=== PATIENT | male | born 1945 | race Caucasian/White ===

== ENCOUNTER 2020-06-14 06:04 | Observation (INO) | payer MEDICARE, BC ==
[~2020-06-14 06:04] MED LIST: Acetaminophen 325 MG Tab PO SCH; Lactated Ringers 1,000 ML IV SCH; Lidocaine 1%/Sod Bicarbonate in NS 8.4% 1 ML Syringe IDERM PRN; Morphine 8 MG, EPINEPHrine 0.3 MG, Cefuroxime 750 MG, Ketorolac 30 MG, Sodium Chloride ... PRN; Pregabalin 25 MG Cap PO SCH; Sodium Chloride 0.9% 10 ML Syringe FLUSH PRN; oxyCODONE ER 10 MG TAB.ER PO SCH
[2020-06-14] MEDS ORDERED: Bupivacaine 0.25% 10 ML SDV ONE (06:24)
[2020-06-14] MEDS ORDERED: Vancomycin 1 GM SDV ONE (06:24)
--- NOTE | 2020-06-14 06:53 | PCM.PREANE ---
Preanesthetic Assessment - Procedure Proposed Procedure: Left total knee arthroplasty - Anesthesia/Transfusion/Family Hx Anesthesia History: Prior Anesthesia Without Reaction Family History of Anesthesia Reaction: No Transfusion History: No Prior Transfusion(s) - Review of Systems General: No Symptoms Pulmonary: No Symptoms, Other (sleep apnea) Cardiovascular: Dyspnea on Exertion Gastrointestinal: No Symptoms Neurological: No Symptoms Other: Reports: Diabetes (check this am 111 at 0610) - Physical Assessment NPO Status Date: 06/13/20 NPO Status Time: 00:00 Vital Signs: Last Vital Signs Temp 36.4 C 06/14/20 06:10 Pulse 80 06/14/20 06:10 Resp 16 06/14/20 06:10 BP 159/69 H 06/14/20 06:10 Pulse Ox 95 06/14/20 06:10 Height: 1.7 m Weight: 101.151 kg ASA Class: 3 Mental Status: Alert & Oriented x3 Airway Class: Mallampati = 3 Dentition: Reports: Dentures Thyro-Mental Finger Breadths: 1 Mouth Opening Finger Breadths: 2 ROM/Head Extension: Limited/Partial Lungs: Clear to Auscultation, Normal Respiratory Effort Cardiovascular: Regular Rate, Regular Rhythm - Lab Values: Laboratory Last Values MRSA (PCR) Negative 06/02/20 12:11 - Allergies Allergies/Adverse Reactions: Allergies Allergy/AdvReac Type Severity Reaction Status Date / Time No Known Allergies Allergy Verified 06/11/20 15:03 - Blood Blood Available: No - Anesthesia Plan Pre-Op Medication Ordered: None - Acknowledgements Anesthesia Type Planned: Spinal Pt an Appropriate Candidate for the Planned Anesthesia: Yes Alternatives and Risks of Anesthesia Discussed w Pt/Guardian: Yes Pt/Guardian Understands and Agrees with Anesthesia Plan: Yes PreAnesthesia Questionnaire HEENT History: Reports: Impaired Vision, Other (See Below) Other HEENT History: diabetic retinopathy, wears glasses, has dentures Cardiovascular History: Reports: High Cholesterol, Hypertension, Other (See Below) Other Cardiovascular History: varicose veins, edema Respiratory History: Reports: Other (See Below) Other Respiratory History: acute bronchitis, upper respiratory infection, shortness of breath with exertion Gastrointestinal History: Reports: None Genitourinary History: Reports: BPH, Other (See Below) Other Genitourinary History: nocturia [employer]ILE [employer]ACH History: Reports: None Musculoskeletal History: Reports: Other (See Below) Other Musculoskeletal History: left knee pain, polymyalgia rheumatica, joint pain, popliteal space synovial cyst, left thumb tip amputation Neurological History: Reports: None Psychiatric History: Reports: Other (See Below) Other Psychiatric History: malaise, fatigue Endocrine/Metabolic History: Reports: Diabetes, Type II, Obesity/BMI 30+, Other (See Below) Other Endocrine/Metabolic History: thyroxotosis Hematologic History: Reports: Anemia Immunologic History: Reports: None Oncologic (Cancer) History: Reports: None Dermatologic History: Reports: Other (See Below) Other Dermatologic History: cellulits, abcess - Past Surgical History Head Surgeries/Procedures: Reports: None HEENT Surgical History: Reports: Cataract Surgery Respiratory Surgical History: Reports: None GI Surgical History: Reports: Colonoscopy Female Surgical History: Reports: None Male Surgical History: Reports: None Endocrine Surgical History: Reports: None Neurological Surgical History: Reports: None Musculoskeletal Surgical History: Reports: None Oncologic Surgical History: Reports: None Dermatological Surgical History: Reports: None - SUBSTANCE USE Tobacco Use Status *Q: Former Tobacco User Recreational Drug Use History: No - HOME MEDS Home Medications: Home Meds Cholecalciferol (Vitamin D3) [Vitamin D3] 5,000 unit PO DAILY 06/11/20 [History] Insulin Glarg,Human.Rec.Analog [Lantus] 12 units SQ BID 06/11/20 [History] Insulin Glulisine [Apidra Solostar] 10 units SQ BID 06/11/20 [History] Liraglutide [Victoza] 1.8 mg SQ DAILY 06/11/20 [History] Methotrexate 12.5 mg PO [place] 06/11/20 [History] Nitroglycerin [Nitrostat] 0.4 mg SL ASDIRECTED PRN 06/11/20 [History] Tamsulosin [Flomax] 0.4 mg PO DAILY 06/11/20 [History] amLODIPine [Norvasc] 5 mg PO DAILY 06/11/20 [History] atorvaSTATin Calcium [Lipitor] 20 mg PO DAILY 06/11/20 [History] predniSONE [Prednisone] 4 mg PO DAILY 06/11/20 [History] Aspirin [Aspirin EC] 325 mg PO BID #84 tab 06/14/20 [Rx] Cyclobenzaprine [Flexeril] 10 mg PO BID PRN #20 tab 06/14/20 [Rx] oxyCODONE 5 - 10 mg PO Q4H PRN #40 tab 06/14/20 [Rx] - CURRENT (IN HOUSE) MEDS Current Meds: Current Medications Acetaminophen (Tylenol) 975 mg PO ONETIME [facility] Stop: 06/14/20 13:00 Last Admin: 06/14/20 06:22 Dose: 975 mg Documented by: Morphine Sulfate 8 mg/Epinephrine HCl 0.3 mg/Cefuroxime Sodium 750 mg/Ketorolac Tromethamine 30 mg/Sodium Chloride 7.9 ml 0 mg .XX ASDIRECTED PRN PRN Reason: Pain Stop: 06/14/20 15:00 Lactated Ringer's (Ringers, Lactated) 1,000 mls @ 125 mls/hr IV ASDIRECTED [facility] Stop: 06/14/20 23:00 Lidocaine/Sodium Bicarbonate (Buffered Lidocaine 1% In Ns 8.4%) 0.25 ml IDERM ONETIME PRN PRN Reason: Prior to IV Start Stop: 06/14/20 18:00 Oxycodone HCl (Oxycontin) 10 mg PO ONETIME [facility] Stop: 06/14/20 13:00 Last Admin: 06/14/20 06:22 Dose: 10 mg Documented by: Pregabalin (Lyrica) 50 mg PO ONETIME [facility] Stop: 06/14/20 13:00 Last Admin: 06/14/20 06:21 Dose: 50 mg Documented by: Sodium Chloride (Saline Flush) 10 ml FLUSH ASDIRECTED PRN PRN Reason: Keep Vein Open Stop: 06/14/20 18:00 Discontinued Medications Bupivacaine HCl (Sensorcaine-Mpf 0.25%) Confirm Administered Dose 30 ml .ROUTE .STK-MED ONE Stop: 06/14/20 06:25 Tranexamic Acid (Cyklokapron) Confirm Administered Dose 1,000 mg .ROUTE .STK-MED ONE Stop: 06/14/20 06:25 Vancomycin HCl (Vancomycin) Confirm Administered Dose 1 gm .ROUTE .STK-MED ONE Stop: 06/14/20 06:25
[2020-06-14] MEDS ORDERED: Lidocaine 1% 4 ML ONE (06:58)
[2020-06-14] MEDS ORDERED: fentaNYL 100 MCG/2 ML SDV ONE (06:58)
[2020-06-14] MEDS ORDERED: Propofol 200 MG/20 ML SDV ONE ×3 (06:58→08:20)
[2020-06-14] MEDS ORDERED: ceFAZolin 1 GM Vial ONE (06:59)
--- NOTE | 2020-06-14 08:52 | PCM.POSTAN ---
POST ANESTHESIA ASSESSMENT - MENTAL STATUS Mental Status: Somnolent - VITAL SIGNS Vital Signs: Last Vital Signs Temp 36.4 C 06/14/20 06:10 Pulse 80 06/14/20 06:10 Resp 16 06/14/20 06:10 BP 159/69 H 06/14/20 06:10 Pulse Ox 95 06/14/20 06:10 - RESPIRATORY Respiratory Status: Respiratory Rate WNL, Airway Patent, O2 Saturation Stable, Supplemental Oxygen - CARDIOVASCULAR CV Status: Pulse Rate WNL, Blood Pressure Stable - GASTROINTESTINAL GI Status: No Symptoms - PAIN Pain Score: 0 - POST OP HYDRATION Hydration Status: Adequate & Stable - OBSERVATIONS Free Text/Narrative:: no anesthesia complications noted
[2020-06-14] MEDS ORDERED: EPINEPHrine 1 MG/ML SDV ONE (08:58)
[2020-06-14] MEDS ORDERED: Ropivacaine 0.5% 5 MG/ML 30 ML SDV ONE (08:59)
--- NOTE | 2020-06-14 09:21 | PCM.SN.2 ---
- Free Text/Narrative Note: Left selective femoral nerve block at the adductor canal for post-procedure pain control under US guidance requested by Dr. Ambrosio. Time Out: 901 Start: 901 End: 908 Chart reviewed. Consent signed. Questions answered. Appropriate monitors applied. Time out performed. Left mid-shaft femur identified with ultrasound, scanning medially of femur, the femoral artery in the adductor canal visualized, and the femoral nerve located laterally to the artery. The skin was prepped lateral to the ultrasound probe with chlorahexadine times two. The 21ga 4� insulated block needle was inserted under direct ultrasound guidance into the adductor canal. 20mL of 0.5% ropivacaine with 1:200,000 epinephrine was injected circumferentially around the nerve with intermittent negative aspiration noted. Patient tolerated the procedure well. Sterile technique noted along with sterile gloves, mask, and sterile probe cover. See picture on progress note and vital signs on nurse�s notes. Block completed in PACU. Salvador Sepulveda CRNA
[2020-06-14] MEDS ORDERED: oxyCODONE 5 MG Tab PO PRN ×2 (10:18→16:57)
--- NOTE | 2020-06-14 10:23 | CR ---
Left knee: AP and lateral views of the left knee were obtained. Comparison: No previous left knee exam is available. Findings: Left knee prosthesis is seen. Components are aligned. Soft tissue air and effusion is seen within the joint compatible with the surgical procedure. Mild vascular calcification is seen. No acute fracture is seen. Impression: 1. Unremarkable postop radiographic exam of recently placed left knee prosthesis. Diagnostic code #2
[2020-06-14] MEDS ORDERED: Lactated Ringers 1,000 ML ONE (10:41)
[2020-06-14] MEDS ORDERED: Dexamethasone 4 MG/ML 5 ML MDV ONE (10:41)
--- NOTE | 2020-06-14 12:57 | PCM48HPAN ---
Post Anesthesia Note - EVALUATION WITHIN 48HRS OF ANESTHETIC Vital Signs in Normal Range: Yes Patient Participated in Evaluation: Yes Respiratory Function Stable: Yes Airway Patent: Yes Cardiovascular Function Stable: Yes Hydration Status Stable: Yes Pain Control Satisfactory: Yes Nausea and Vomiting Control Satisfactory: Yes Mental Status Recovered: Yes Vital Signs: Last Vital Signs Temp 36.7 C 06/14/20 09:50 Pulse 89 06/14/20 12:12 Resp 16 06/14/20 12:12 BP 130/77 06/14/20 12:12 Pulse Ox 92 L 06/14/20 12:12 - COMMENTS/OBSERVATIONS Free Text/Narrative:: no anesthesia complications noted
[2020-06-14] MEDS ORDERED: Sennosides 8.6 MG Tab PO PRN (16:57)
[2020-06-14] MEDS ORDERED: Ondansetron 4 MG/2 ML SDV IVPUSH PRN (16:57)
[2020-06-14] MEDS ORDERED: Bisacodyl 5 MG Tab PO PRN (16:57)
[2020-06-14] MEDS ORDERED: Cyclobenzaprine 10 MG Tab PO PRN (16:57)
[2020-06-14] MEDS ORDERED: HYDROmorphone 0.5 MG/0.5 ML Syringe IVPUSH PRN (16:57)
[2020-06-14] MEDS ORDERED: Naloxone 0.4 MG/ML SDV IVPUSH PRN (16:57)
[2020-06-14] MEDS ORDERED: Nitroglycerin 0.4 MG Tab.SL SL PRN (17:10)
[2020-06-14] MEDS: ceFAZolin 2 GM in Premix Bag 1 BAG IV SCH (18:05)
[2020-06-14] MEDS: LANTUS SUBCUT SCH (20:41)
[2020-06-14] MEDS ORDERED: Simvastatin 20 MG Tab PO SCH (21:00)
[2020-06-15] MEDS: ceFAZolin 2 GM in Premix Bag 1 BAG IV SCH ×2 (00:49→09:19)
[2020-06-15] MEDS ORDERED: APIDRA SUBCUT SCH (07:00)
--- NOTE | 2020-06-15 07:44 | PCM48HPAN ---
Post Anesthesia Note - EVALUATION WITHIN 48HRS OF ANESTHETIC Vital Signs in Normal Range: Yes Patient Participated in Evaluation: Yes Respiratory Function Stable: Yes Airway Patent: Yes Cardiovascular Function Stable: Yes Hydration Status Stable: Yes Pain Control Satisfactory: Yes Nausea and Vomiting Control Satisfactory: Yes Mental Status Recovered: Yes Vital Signs: Last Vital Signs Temp 35.8 C L 06/15/20 07:25 Pulse 88 06/15/20 07:25 Resp 18 06/15/20 07:25 BP 166/61 H 06/15/20 07:25 Pulse Ox 93 L 06/15/20 07:41 - COMMENTS/OBSERVATIONS Free Text/Narrative:: no anesthesia complications noted
[2020-06-15] MEDS: LANTUS SUBCUT SCH (08:27)
--- NOTE | 2020-06-15 08:33 | PCM.SURGPN ---
- General Info Date of Service: 06/15/20 POD#: 1 Functional Status: Reports: Pain Controlled, Tolerating Diet, Ambulating, Urinating, Incentive Spirometry, Other (Pt states he is doing "much better". He reports increased strength with LLE and able to ambulate well. Pt reports pain /.) - Review of Systems Pulmonary: Reports: Other (Use of O2 overnight. ) - Patient Data Vitals - Most Recent: Last Vital Signs Temp 96.4 F L 06/15/20 07:25 Pulse 88 06/15/20 07:25 Resp 18 06/15/20 07:25 BP 166/61 H 06/15/20 08:26 Pulse Ox 93 L 06/15/20 07:41 Weight - Most Recent: 230 lb I&O - Last 24 Hours: Intake & Output 06/14/20 06/15/20 06/15/20 22:59 06:59 14:59 Intake Total 50 Balance 50 Lab Results Last 24 Hrs: Laboratory Results - last 24 hr 06/15/20 06/15/20 Range/Units 04:31 04:31 WBC 14.95 H (4.23-9.07) K/mm3 RBC 3.35 L (4.63-6.08) M/mm3 Hgb 10.6 L D (13.7-17.5) gm/dl Hct 32.8 L (40.1-51.0) % MCV 97.9 H (79.0-92.2) fl MCH 31.6 (25.7-32.2) pg MCHC 32.3 (32.2-35.5) g/dl RDW Std Deviation 47.5 H (35.1-43.9) fL Plt Count 158 L (163-337) K/mm3 MPV 11.8 (9.4-12.3) fl Sodium 132 L (136-145) mEq/L Potassium 4.4 (3.5-5.1) mEq/L Chloride 100 (98-107) mEq/L Carbon Dioxide 26 (21-32) mEq/L Anion Gap 10.4 (5-15) BUN 42 H (7-18) mg/dL Creatinine 1.9 H (0.7-1.3) mg/dL Est Cr Clr Drug Dosing 32.37 mL/min Estimated GFR (MDRD) 35 (>60) mL/min BUN/Creatinine Ratio 22.1 H (14-18) Glucose 229 H (83-115) mg/dL Calcium 8.2 L (8.5-10.1) mg/dL Total Bilirubin 0.4 (0.2-1.0) mg/dL AST 17 (15-37) U/L ALT 20 (16-63) U/L Alkaline Phosphatase 57 (46-116) U/L Total Protein 5.8 L (6.4-8.2) g/dl Albumin 2.8 L (3.4-5.0) g/dl Globulin 3.0 gm/dL Albumin/Globulin Ratio 0.9 L (1-2) Med Orders - Current: Current Medications Amlodipine Besylate (Norvasc) 5 mg PO DAILY [facility] Last Admin: 06/15/20 08:26 Dose: 5 mg Documented by: Aspirin (Ecotrin) 325 mg PO BID [facility] Bisacodyl (Dulcolax) 5 mg PO DAILY PRN PRN Reason: Constipation Cholecalciferol (Vitamin D3) 5,000 unit PO DAILY [facility] Last Admin: 06/15/20 08:26 Dose: 5,000 unit Documented by: Cyclobenzaprine HCl (Flexeril) 10 mg PO BID PRN PRN Reason: Spasms Hydromorphone HCl (Dilaudid) 0.2 mg IVPUSH Q2H PRN PRN Reason: Pain (moderate 4-6) Cefazolin Sodium/Dextrose 2 gm (/ Premix) 50 mls @ 100 mls/hr IV Q8H [facility] Stop: 06/15/20 09:29 Last Admin: 06/15/20 00:49 Dose: 100 mls/hr Documented by: Methotrexate (Methotrexate) 12.5 mg PO CROWLEY [facility] Naloxone HCl (Narcan) 0.1 mg IVPUSH Q5M PRN PRN Reason: Oversedation Nitroglycerin (Nitrostat) 0.4 mg SL ASDIRECTED PRN PRN Reason: Chest Pain Ondansetron HCl (Zofran) 4 mg IVPUSH Q6H PRN PRN Reason: Nausea/Vomiting Oxycodone HCl (Oxycodone) 5 - 10 mg PO Q4H PRN PRN Reason: Pain Last Admin: 06/14/20 18:06 Dose: 10 mg Documented by: Lantus Solostar *Pt (Own Med*) 0 each SUBCUT BID [facility] Last Admin: 06/15/20 08:27 Dose: 12 each Documented by: Apidra Solostar *Pt (Own Med*) 0 each SUBCUT BIDMEALS [facility] Last Admin: 06/15/20 07:30 Dose: 10 each Documented by: Liraglutide*Pt Own (Med*) 0 each SUBCUT DAILY [facility] Last Admin: 06/15/20 08:27 Dose: 1.8 each Documented by: Prednisone (Prednisone) 4 mg PO DAILY [facility] Last Admin: 06/15/20 08:26 Dose: 4 mg Documented by: Senna (Senna) 8.6 mg PO BID PRN PRN Reason: Constipation Simvastatin (Zocor) 20 mg PO BEDTIME [facility] Last Admin: 06/14/20 20:41 Dose: 20 mg Documented by: Tamsulosin HCl (Flomax) 0.4 mg PO DAILY [facility] Last Admin: 06/15/20 08:26 Dose: 0.4 mg Documented by: Discontinued Medications Acetaminophen (Tylenol) 975 mg PO ONETIME [facility] Stop: 06/14/20 13:00 Last Admin: 06/14/20 06:22 Dose: 975 mg Documented by: Bupivacaine HCl (Sensorcaine-Mpf 0.25%) Confirm Administered Dose 30 ml .ROUTE .STK-MED ONE Stop: 06/14/20 06:25 Last Admin: 06/14/20 08:10 Dose: 30 ml Documented by: Cefazolin Sodium (Ancef) Confirm Administered Dose 2 gm .ROUTE .STK-MED ONE Stop: 06/14/20 07:00 Morphine Sulfate 8 mg/Epinephrine HCl 0.3 mg/Cefuroxime Sodium 750 mg/Ketorolac Tromethamine 30 mg/Sodium Chloride 7.9 ml 0 mg .XX ASDIRECTED PRN PRN Reason: Pain Stop: 06/14/20 15:00 Last Admin: 06/14/20 08:12 Dose: 788.3 mg Documented by: Dexamethasone (Dexamethasone) Confirm Administered Dose 20 mg .ROUTE .STK-MED ONE Stop: 06/14/20 10:42 Epinephrine HCl (Adrenalin) Confirm Administered Dose 1 mg .ROUTE .STK-MED ONE Stop: 06/14/20 08:59 Fentanyl (Sublimaze) Confirm Administered Dose 100 mcg .ROUTE .STK-MED ONE Stop: 06/14/20 06:59 Lactated Ringer's (Ringers, Lactated) 1,000 mls @ 125 mls/hr IV ASDIRECTED [facility] Stop: 06/14/20 23:00 Last Admin: 06/14/20 06:40 Dose: 125 mls/hr Documented by: Lidocaine HCl (Xylocaine-Mpf 1%) Confirm Administered Dose 4 mls @ as directed .ROUTE .STK-MED ONE Stop: 06/14/20 06:59 Lactated Ringer's (Ringers, Lactated) Confirm Administered Dose 1,000 mls @ as directed .ROUTE .STK-MED ONE Stop: 06/14/20 10:42 Lidocaine/Sodium Bicarbonate (Buffered Lidocaine 1% In Ns 8.4%) 0.25 ml IDERM ONETIME PRN PRN Reason: Prior to IV Start Stop: 06/14/20 18:00 Last Admin: 06/14/20 06:40 Dose: 0.25 ml Documented by: Oxycodone HCl (Oxycontin) 10 mg PO ONETIME [facility] Stop: 06/14/20 13:00 Last Admin: 06/14/20 06:22 Dose: 10 mg Documented by: Oxycodone HCl (Oxycodone) 10 mg PO Q4H PRN PRN Reason: Pain Last Admin: 06/14/20 10:24 Dose: 10 mg Documented by: Pregabalin (Lyrica) 50 mg PO ONETIME [facility] Stop: 06/14/20 13:00 Last Admin: 06/14/20 06:21 Dose: 50 mg Documented by: Propofol (Diprivan 20 Ml) Confirm Administered Dose 200 mg .ROUTE .STK-MED ONE Stop: 06/14/20 06:59 Propofol (Diprivan 20 Ml) Confirm Administered Dose 200 mg .ROUTE .STK-MED ONE Stop: 06/14/20 07:43 Propofol (Diprivan 20 Ml) Confirm Administered Dose 200 mg .ROUTE .STK-MED ONE Stop: 06/14/20 08:21 Ropivacaine (Naropin 0.5%) Confirm Administered Dose 30 ml .ROUTE .STK-MED ONE Stop: 06/14/20 09:00 Sodium Chloride (Saline Flush) 10 ml FLUSH ASDIRECTED PRN PRN Reason: Keep Vein Open Stop: 06/14/20 18:00 Tranexamic Acid (Cyklokapron) Confirm Administered Dose 1,000 mg .ROUTE .STK-MED ONE Stop: 06/14/20 06:25 Last Admin: 06/14/20 08:23 Dose: 1,000 mg Documented by: Vancomycin HCl (Vancomycin) Confirm Administered Dose 1 gm .ROUTE .STK-MED ONE Stop: 06/14/20 06:25 Last Admin: 06/14/20 08:23 Dose: 1 gm Documented by: - Exam Wound/Incisions: Dressing Dry and Intact General: Alert, Cooperative, No Acute Distress Lungs: Normal Respiratory Effort, Other (No O2 per NC at time of eval today.) Extremities: Other (NVS intact for LLE. Zarina's negative. ) Sepsis Event Note - Evaluation Sepsis Screening Result: No Definite Risk - Focused Exam Vital Signs: Vital Signs Temp Pulse Resp BP Pulse Ox Pulse Ox 06/15/20 08:26 166/61 H 06/15/20 07:41 93 L 93 L 06/15/20 07:25 96.4 F L 88 18 166/61 H 93 L 06/15/20 06:23 94 L 06/15/20 05:37 78 94 L 06/15/20 05:34 78 89 L 89 L 06/15/20 05:33 78 91 L 06/15/20 04:49 78 96 06/15/20 04:47 78 91 L 06/15/20 04:45 97.5 F 78 16 134/55 L 93 L 93 L 06/15/20 01:53 94 96 06/15/20 00:55 97.9 F 83 14 143/73 H 96 96 - Problem List Review Problem List Initiated/Reviewed/Updated: Yes - My Orders Last 24 Hours: Active Orders 24 hr Category Date Time Status Patient Status [ADT] Routine ADT 06/14/20 16:58 Active Ambulate [RC] PER UNIT ROUTINE Care 06/14/20 16:57 Active Antiembolic Devices [RC] PER UNIT ROUTINE Care 06/14/20 16:57 Active Antiembolic Devices [RC] PER UNIT ROUTINE Care 06/14/20 16:59 Active Blood Glucose Check, Bedside [RC] ASDIRECTED Care 06/14/20 16:57 Active Communication Order [RC] ASDIRECTED Care 06/14/20 17:09 Active Communication Order [RC] ASDIRECTED Care 06/15/20 08:30 Ordered May Shower [RC] ASDIRECTED Care 06/14/20 16:57 Active Notify Provider Consults [RC] ASDIRECTED Care 06/15/20 08:29 Ordered Notify Provider [RC] ASDIRECTED Care 06/14/20 08:51 Active Oxygen Therapy [RC] PRN Care 06/14/20 16:58 Active RT Incentive Spirometry [RC] Q1HWA Care 06/14/20 16:55 Active Up to Chair [RC] ASDIRECTED Care 06/14/20 16:57 Active Vital Signs [RC] Q4HR Care 06/14/20 16:58 Active Consult to Physician [CONS] Routine Cons 06/15/20 08:28 Ordered OT Evaluation and Treatment [CONS] Routine Cons 06/14/20 16:57 Active PT Evaluation and Treatment [CONS] Routine Cons 06/14/20 16:56 Active [employer] Diet [DIET] Diet 06/14/20 Dinner Active Aspirin [Ecotrin] Med 06/16/20 08:14 Active 325 mg PO BID Cholecalciferol (Vitamin D3) [Vitamin D3] Med 06/15/20 09:00 Active 5,000 unit PO DAILY Cyclobenzaprine [Flexeril] Med 06/14/20 16:57 Active 10 mg PO BID PRN HYDROmorphone [Dilaudid] Med 06/14/20 16:57 Active 0.2 mg IVPUSH Q2H PRN Methotrexate Med 06/20/20 17:10 Active 12.5 mg PO [place] Naloxone [Narcan] Med 06/14/20 16:57 Active 0.1 mg IVPUSH Q5M PRN Nitroglycerin [Nitrostat] Med 06/14/20 17:10 Active 0.4 mg SL ASDIRECTED PRN Ondansetron [Zofran] Med 06/14/20 16:57 Active 4 mg IVPUSH Q6H PRN Patient's Own Medication [Ptom] Med 06/14/20 21:00 Active 0 each SUBCUT BID Patient's Own Medication [Ptom] Med 06/15/20 07:00 Active 0 each SUBCUT BIDMEALS Patient's Own Medication [Ptom] Med 06/15/20 09:00 Active 0 each SUBCUT DAILY Sennosides [Senna] Med 06/14/20 16:57 Active 8.6 mg PO BID PRN Simvastatin [Zocor] Med 06/14/20 21:00 Active 20 mg PO BEDTIME Tamsulosin [Flomax] Med 06/15/20 09:00 Active 0.4 mg PO DAILY amLODIPine [Norvasc] Med 06/15/20 09:00 Active 5 mg PO DAILY bisacodyL [Dulcolax] Med 06/14/20 16:57 Active 5 mg PO DAILY PRN ceFAZolin [Ancef] 2 gm Med 06/14/20 17:00 Active Premix Bag 1 bag IV Q8H oxyCODONE Med 06/14/20 16:57 Active 5 - 10 mg PO Q4H PRN predniSONE Med 06/15/20 09:00 Active 4 mg PO DAILY Antiembolic Hose [OM.PC] Routine Oth 06/14/20 16:57 Ordered Ice Therapy [OM.PC] Per Unit Routine Oth 06/14/20 17:00 Ordered Sequential Compression Device [OM.PC] Per Unit Routine Oth 06/14/20 16:56 Ordered Resuscitation Status Routine Resus Stat 06/14/20 16:57 Ordered Medication Orders Amlodipine Besylate (Norvasc) 5 mg PO DAILY [facility] Last Admin: 06/15/20 08:26 Dose: 5 mg Documented by: MATEUS Aspirin (Ecotrin) 325 mg PO BID [facility] Bisacodyl (Dulcolax) 5 mg PO DAILY PRN PRN Reason: Constipation Cholecalciferol (Vitamin D3) 5,000 unit PO DAILY [facility] Last Admin: 06/15/20 08:26 Dose: 5,000 unit Documented by: MATEUS Cyclobenzaprine HCl (Flexeril) 10 mg PO BID PRN PRN Reason: Spasms Hydromorphone HCl (Dilaudid) 0.2 mg IVPUSH Q2H PRN PRN Reason: Pain (moderate 4-6) Cefazolin Sodium/Dextrose 2 gm (/ Premix) 50 mls @ 100 mls/hr IV Q8H [facility] Stop: 06/15/20 09:29 Last Admin: 06/15/20 00:49 Dose: 100 mls/hr Documented by: Infusion: 06/14/20 18:35 Dose: 100 mls/hr Documented by: Admin: 06/14/20 18:05 Dose: 100 mls/hr Documented by: MATEUS Methotrexate (Methotrexate) 12.5 mg PO CROWLEY [facility] Naloxone HCl (Narcan) 0.1 mg IVPUSH Q5M PRN PRN Reason: Oversedation Nitroglycerin (Nitrostat) 0.4 mg SL ASDIRECTED PRN PRN Reason: Chest Pain Ondansetron HCl (Zofran) 4 mg IVPUSH Q6H PRN PRN Reason: Nausea/Vomiting Oxycodone HCl (Oxycodone) 5 - 10 mg PO Q4H PRN PRN Reason: Pain Last Admin: 06/14/20 18:06 Dose: 10 mg Documented by: MATEUS Lanhi Alvarez *Pt (Own Med*) 0 each SUBCUT BID [facility] Last Admin: 06/15/20 08:27 Dose: 12 each Documented by: Admin: 06/14/20 20:41 Dose: 12 each Documented by: DOUG Apidrsergio Alvarez *Pt (Own Med*) 0 each SUBCUT BIDMEALS [facility] Last Admin: 06/15/20 07:30 Dose: 10 each Documented by: MATEUS Liraglutide*Pt Own (Med*) 0 each SUBCUT DAILY [facility] Last Admin: 06/15/20 08:27 Dose: 1.8 each Documented by: MATEUS Prednisone (Prednisone) 4 mg PO DAILY [facility] Last Admin: 06/15/20 08:26 Dose: 4 mg Documented by: MATEUS Senna (Senna) 8.6 mg PO BID PRN PRN Reason: Constipation Simvastatin (Zocor) 20 mg PO BEDTIME [facility] Last Admin: 06/14/20 20:41 Dose: 20 mg Documented by: DOUG Tamsulosin HCl (Flomax) 0.4 mg PO DAILY [facility] Last Admin: 06/15/20 08:26 Dose: 0.4 mg Documented by: MATEUS - Assessment Assessment (Free Text/Narrative):: POD#1 - left TKA - Plan Plan (Free Text/Narrative):: 1. Hospitalist consult ordered for eval of home O2 and renal function. Creat 1.9 with GFR 35. 2. Oxycodone and Flexeril for pain management. 3. 325mg ASA PO BID, frequent mobility, TEDs. 4. Discharge to home today if cleared by Hospitalist service and therapies. 5. Hgb 10.6. The pt's case was discussed with Dr. Ambrosio.
--- NOTE | 2020-06-15 08:37 | PCM.CONS ---
H&P History of Present Illness - General Date of Service: 06/15/20 Admit Problem/Dx: Admission Diagnosis/Problem Admission Diagnosis/Problem Osteoarthritis of knee Source of Information: Patient, Old Records, Provider, RN, RN Notes Reviewed History Limitations: Reports: No Limitations - History of Present Illness Initial Comments - Free Text/Narative: Ilir Robertson is a 74 yo male patient of Dr. Ambrosio who is post-operative day 1 of left TKA. Hospital medicine was consulted for post-operative medical care of the following listed medical conditions. At this time he is resting comfortably in bed. Pain is controlled. He denies any chest pain, shortness of breath, palpitations, nausea, or vomiting. He carries a history of: diabetic retinopathy, HLD, HTN, varicose venins, edema, BPH, Nocturia, polymyalgia rheumatica, Type II DM, Obesity, history of thyrotoxicosis, anemia. He is a former smoker. He is a full code. His primary care provider is Dr. Goff. - Related Data Allergies/Adverse Reactions: Allergies Allergy/AdvReac Type Severity Reaction Status Date / Time No Known Allergies Allergy Verified 06/11/20 15:03 Home Medications: Home Meds Cholecalciferol (Vitamin D3) [Vitamin D3] 5,000 unit PO DAILY 06/11/20 [History] Insulin Glarg,Human.Rec.Analog [Lantus] 12 units SQ BID 06/11/20 [History] Insulin Glulisine [Apidra Solostar] 10 units SQ BID 06/11/20 [History] Liraglutide [Victoza] 1.8 mg SQ DAILY 06/11/20 [History] Methotrexate 12.5 mg PO CROWLEY 06/11/20 [History] Nitroglycerin [Nitrostat] 0.4 mg SL ASDIRECTED PRN 06/11/20 [History] Tamsulosin [Flomax] 0.4 mg PO DAILY 06/11/20 [History] amLODIPine [Norvasc] 5 mg PO DAILY 06/11/20 [History] atorvaSTATin Calcium [Lipitor] 20 mg PO DAILY 06/11/20 [History] predniSONE [Prednisone] 4 mg PO DAILY 06/11/20 [History] Aspirin [Aspirin EC] 325 mg PO BID #84 tab 06/14/20 [Rx] Cyclobenzaprine [Flexeril] 10 mg PO BID PRN #20 tab 06/14/20 [Rx] oxyCODONE 5 - 10 mg PO Q4H PRN #40 tab 06/14/20 [Rx] Past Medical History HEENT History: Reports: Impaired Vision, Other (See Below) Other HEENT History: diabetic retinopathy, wears glasses, has dentures Cardiovascular History: Reports: High Cholesterol, Hypertension, Other (See Below) Other Cardiovascular History: varicose veins, edema Respiratory History: Reports: Other (See Below) Other Respiratory History: acute bronchitis, upper respiratory infection, shortness of breath with exertion Gastrointestinal History: Reports: None Genitourinary History: Reports: BPH, Other (See Below) Other Genitourinary History: nocturia 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 Musculoskeletal History: Reports: Other (See Below) Other Musculoskeletal History: left knee pain, polymyalgia rheumatica, joint pain, popliteal space synovial cyst, left thumb tip amputation Neurological History: Reports: None Psychiatric History: Reports: Other (See Below) Other Psychiatric History: malaise, fatigue Endocrine/Metabolic History: Reports: Diabetes, Type II, Obesity/BMI 30+, Other (See Below) Other Endocrine/Metabolic History: thyroxotosis Hematologic History: Reports: Anemia Immunologic History: Reports: None Oncologic (Cancer) History: Reports: None Dermatologic History: Reports: Other (See Below) Other Dermatologic History: cellulits, abcess - Past Surgical History Head Surgeries/Procedures: Reports: None HEENT Surgical History: Reports: Cataract Surgery Respiratory Surgical History: Reports: None GI Surgical History: Reports: Colonoscopy Male Surgical History: Reports: None Endocrine Surgical History: Reports: None Neurological Surgical History: Reports: None Musculoskeletal Surgical History: Reports: None Oncologic Surgical History: Reports: None Dermatological Surgical History: Reports: None Social & Family History - Tobacco Use Tobacco Use Status *Q: Former Tobacco User Used Tobacco, but Quit: Yes Month/Year Tobacco Last Used: 2002 - Caffeine Use Caffeine Use: Reports: Coffee, Tea - Recreational Drug Use Recreational Drug Use: No Drug Use in Last 12 Months: No H&P Review of Systems - Review of Systems: Review Of Systems: See Below General: Reports: No Symptoms. Denies: Fever, Chills HEENT: Reports: No Symptoms. Denies: Headaches, Sore Throat Pulmonary: Reports: No Symptoms. Denies: Shortness of Breath, Wheezing, Pleuritic Chest Pain, Cough, Sputum Cardiovascular: Reports: No Symptoms. Denies: Chest Pain, Palpitations, Dyspnea on Exertion Gastrointestinal: Reports: No Symptoms. Denies: Abdominal Pain, Constipation, Diarrhea, Nausea, Vomiting Genitourinary: Reports: No Symptoms. Denies: Pain Musculoskeletal: Reports: Leg Pain Skin: Reports: No Symptoms. Denies: Cyanosis Psychiatric: Reports: No Symptoms. Denies: Confusion Neurological: Reports: Difficulty Walking, Gait Disturbance. Denies: Confusion, Pre-Existing Deficit Hematologic/Lymphatic: Reports: No Symptoms Immunologic: Reports: No Symptoms Exam - Exam Exam: See Below - Vital Signs Vital Signs: Last Vital Signs Temp 96.4 F L 06/15/20 07:25 Pulse 88 06/15/20 07:25 Resp 18 06/15/20 07:25 BP 166/61 H 06/15/20 08:26 Pulse Ox 93 L 06/15/20 07:41 Weight: 230 lb - Exam Quality Assessment: DVT Prophylaxis General: Alert, Oriented, Cooperative. No: Mild Distress HEENT: Conjunctiva Clear, EACs Clear, Mucosa Moist & [place] Neck: Supple, Trachea Midline Lungs: Clear to Auscultation, Normal Respiratory Effort GI/Abdominal Exam: Normal Bowel Sounds, Soft, Non-Tender, No Distention (Male) Exam: Deferred Rectal (Males) Exam: Deferred Back Exam: Normal Inspection, Full Range of Motion Extremities: Normal Capillary Refill, Leg Pain, Limited Range of Motion, Other (Bandage in place on left leg. Cooling pack in place. Bandage is intact and dry.) Peripheral Pulses: 2+: Radial (L), Radial (R), Dorsalis Pedis (L), Dorsalis Pedis (R) Skin: Warm, Dry, Intact Neurological: Cranial Nerves Intact (Grossly ) Neuro Extensive - Mental Status: Alert, Oriented x3, Normal Mood/Affect - Patient Data Lab Results Last 24 hrs: Laboratory Results - last 24 hr 06/15/20 06/15/20 Range/Units 04:31 04:31 WBC 14.95 H (4.23-9.07) K/mm3 RBC 3.35 L (4.63-6.08) M/mm3 Hgb 10.6 L D (13.7-17.5) gm/dl Hct 32.8 L (40.1-51.0) % MCV 97.9 H (79.0-92.2) fl MCH 31.6 (25.7-32.2) pg MCHC 32.3 (32.2-35.5) g/dl RDW Std Deviation 47.5 H (35.1-43.9) fL Plt Count 158 L (163-337) K/mm3 MPV 11.8 (9.4-12.3) fl Sodium 132 L (136-145) mEq/L Potassium 4.4 (3.5-5.1) mEq/L Chloride 100 (98-107) mEq/L Carbon Dioxide 26 (21-32) mEq/L Anion Gap 10.4 (5-15) BUN 42 H (7-18) mg/dL Creatinine 1.9 H (0.7-1.3) mg/dL Est Cr Clr Drug Dosing 32.37 mL/min Estimated GFR (MDRD) 35 (>60) mL/min BUN/Creatinine Ratio 22.1 H (14-18) Glucose 229 H (83-115) mg/dL Calcium 8.2 L (8.5-10.1) mg/dL Total Bilirubin 0.4 (0.2-1.0) mg/dL AST 17 (15-37) U/L ALT 20 (16-63) U/L Alkaline Phosphatase 57 (46-116) U/L Total Protein 5.8 L (6.4-8.2) g/dl Albumin 2.8 L (3.4-5.0) g/dl Globulin 3.0 gm/dL Albumin/Globulin Ratio 0.9 L (1-2) Result Diagrams: 06/15/20 04:31 06/15/20 04:31 Sepsis Event Note - Evaluation Sepsis Screening Result: No Definite Risk - Focused Exam Vital Signs: Vital Signs Temp Pulse Resp BP Pulse Ox Pulse Ox 06/15/20 08:26 166/61 H 06/15/20 07:41 93 L 93 L 06/15/20 07:25 96.4 F L 88 18 166/61 H 93 L 06/15/20 06:23 94 L 06/15/20 05:37 78 94 L 06/15/20 05:34 78 89 L 89 L 06/15/20 05:33 78 91 L 06/15/20 04:49 78 96 06/15/20 04:47 78 91 L 06/15/20 04:45 97.5 F 78 16 134/55 L 93 L 93 L 06/15/20 01:53 94 96 06/15/20 00:55 97.9 F 83 14 143/73 H 96 96 Consult PN Assessment/Plan POD#: 1 Procedures: Procedures C-REACTIVE PROTEIN (06/08/20) COMPLETE CBC W/AUTO DIFF WBC (06/08/20) COMPREHEN METABOLIC PANEL (06/08/20) MRI JOINT UPR EXTREM W/O DYE (12/19/16) ROUTINE VENIPUNCTURE (06/08/20) (1) S/P total knee arthroplasty SNOMED Code(s): 1060152600613, 227856392, 4218993825541 Code(s): Z96.659 - PRESENCE OF UNSPECIFIED ARTIFICIAL KNEE JOINT Priority: High Current Visit: Yes Qualifiers: Laterality: left Qualified Code(s): Z96.652 - Presence of left artificial knee joint (2) Osteoarthritis SNOMED Code(s): 439473610 Code(s): M19.90 - UNSPECIFIED OSTEOARTHRITIS, UNSPECIFIED SITE Priority: High Current Visit: Yes Qualifiers: Osteoarthritis location: knee Osteoarthritis type: primary Laterality: left Qualified Code(s): M17.12 - Unilateral primary osteoarthritis, left knee (3) Diabetic retinopathy SNOMED Code(s): 5409287, 72068471 Code(s): E11.319 - TYPE 2 DIABETES W UNSP DIABETIC RTNOP W/O MACULAR EDEMA Priority: High Current Visit: Yes Qualifiers: Diabetes mellitus type: type 2 Diabetic retinopathy severity: with unspecified retinopathy severity Diabetes mellitus macular edema: macular edema presence unspecified Laterality: unspecified laterality Qualified Code(s): E11.319 - Type 2 diabetes mellitus with unspecified diabetic retinopathy without macular edema (4) HLD (hyperlipidemia) SNOMED Code(s): 67660099 Code(s): E78.5 - HYPERLIPIDEMIA, UNSPECIFIED Priority: Low Current Visit: No Qualifiers: Hyperlipidemia type: unspecified Qualified Code(s): E78.5 - Hyperlipidemia, unspecified (5) HTN (hypertension) SNOMED Code(s): 58236344 Code(s): I10 - ESSENTIAL (PRIMARY) HYPERTENSION Priority: Low Current Visit: No Qualifiers: Hypertension type: unspecified Qualified Code(s): I10 - Essential (primary) hypertension (6) Varicose vein of leg SNOMED Code(s): 15315166 Code(s): I83.90 - ASYMPTOMATIC VARICOSE VEINS OF UNSPECIFIED LOWER EXTREMITY Priority: Low Current Visit: No Qualifiers: Varicose vein complication: unspecified Laterality: unspecified laterality Qualified Code(s): I83.90 - Asymptomatic varicose veins of unspecified lower extremity (7) BPH (benign prostatic hyperplasia) SNOMED Code(s): 111088950 Code(s): N40.0 - BENIGN PROSTATIC HYPERPLASIA WITHOUT LOWER URINRY TRACT SYMP Priority: Low Current Visit: No Qualifiers: Lower urinary tract symptom presence: unspecified whether lower urinary tract symptoms present Qualified Code(s): N40.0 - Benign prostatic hyperplasia without lower urinary tract symptoms (8) Nocturia SNOMED Code(s): 664769798 Code(s): R35.1 - NOCTURIA Priority: Low Current Visit: No (9) Polymyalgia rheumatica SNOMED Code(s): 86647331 Code(s): M35.3 - POLYMYALGIA RHEUMATICA Priority: Medium Current Visit: No (10) Type II diabetes mellitus SNOMED Code(s): 13315032 Code(s): E11.9 - TYPE 2 DIABETES MELLITUS WITHOUT COMPLICATIONS Priority: Medium Current Visit: Yes Qualifiers: Diabetes mellitus mcc insulin use: with knit tubing dyer use Diabetes mellitus complication status: with other specified complication Qualified Code(s): E11.69 - Type 2 diabetes mellitus with other specified complication; Z79.4 - power chisel operator (current) use of insulin (11) Obesity SNOMED Code(s): 112865551, 693788219 Code(s): E66.9 - OBESITY, UNSPECIFIED Priority: Low Current Visit: No Qualifiers: Obesity type: unspecified obesity type Obesity classification: adult class 2 (BMI 35 - 39.9) Serious obesity comorbidity presence: unspecified whether serious comorbidity present Body mass index: BMI 36.0-36.9 Qualified Code(s): E66.9 - Obesity, unspecified; Z68.36 - Body mass index [BMI] 36.0-36.9, adult (12) History of thyrotoxicosis SNOMED Code(s): 062738509 Code(s): Z86.39 - PERSONAL HISTORY OF ENDO, NUTRITIONAL AND METABOLIC DISEASE Priority: Low Current Visit: No (13) Anemia SNOMED Code(s): 957254340 Code(s): D64.9 - ANEMIA, UNSPECIFIED Priority: Low Current Visit: No Qualifiers: Anemia type: unspecified type Qualified Code(s): D64.9 - Anemia, unspecified (14) Former smoker SNOMED Code(s): 9448246 Code(s): Z87.891 - PERSONAL HISTORY OF NICOTINE DEPENDENCE Priority: Low Current Visit: No (15) Adverse drug effect SNOMED Code(s): 79472870 Code(s): T50.905A - ADVERSE EFFECT OF UNSP DRUG/MEDS/BIOL SUBST, INIT Priority: High Current Visit: Yes Qualifiers: Encounter type: initial encounter Qualified Code(s): T50.905A - Adverse effect of unspecified drugs, medicaments and biological substances, initial encounter (16) Hyponatremia SNOMED Code(s): 35401622 Code(s): E87.1 - HYPO-OSMOLALITY AND HYPONATREMIA Priority: Medium Current Visit: Yes Problem List Initiated/Reviewed/Updated: Yes Plan: I/P: Acute: S/P left total knee arthroplasty - post-operative day 1 -DVT prophylaxis and pain management per primary care team -PT/OT -IS/RT -Monitor oxygen saturation -Titrate oxygen as needed -Home medications reviewed -Vital signs stable -Monitor labs -Pre-operative Hgb was 12.2; Now 10.6 -Pre-operative GFR was 40; Now 35 -Pre-operative creatinine was 1.7; now 1.9 -Pre-operative WBC was 8.04; Now 14.95 -Pre-operative A1C was 7.2 -Pre-operative 12-lead EKG showed sinus rhythm at 78 BPM with Abnormal T- waves lateral leads (consider ischemia) Osteoarthritis of left knee -Pain management per primary care team Adverse drug effect -Nursing reports significant confusion with oxycodone -Resolved this AM Hyponatremia -Sodium today noted to be 132 -Pre-operative sodium was 142 -Home medications reviewed -Asymptomatic -Follow-up with PCP for re-check of labs within 3-5 days. Chronic: diabetic retinopathy HLD HTN varicose venins edema BPH Nocturia polymyalgia rheumatica Type II DM Obesity history of thyrotoxicosis anemia Plan: CM for discharge planning GI prophylaxis Home medications as indicated Other orders as listed above Routine AM labs He is a full code. His PCP is Dr. Goff From a hospitalist standpoint Ilir is doing quite well. He was weaned off of oxygen today. He had an episode of significant confusion last night which was attributed to his oxycodone and has resolved today with discontinuation of the medication. He was up working with PT/OT. His BP has been somewhat elevated but this is likely 2/2 pain. He reports continued leg pain, more severe with ambulation, but states it is tolerable. His sodium today is 132 but he is asymptomatic. Would like him to follow-up with his PCP within 5-7 days for repeat BMP to re-check this. Otherwise his labs have been stable. WBC is el evated but this is likely stress reaction from surgery. Recommend PCP re-check CBC as well. He has been ambulating and has urinated. No nursing concerns. He has been a diabetic for many wears and is well versed on management of this with an A1C of 7.2 pre-operatively. He is cleared for discharge pending primary team and PT/OT agreement. Thank you for allowing us to participate in the care of this patient!! Requesting Provider: Dr. Ambrosio Date Consult Requested: 06/15/20 Patient History Reviewed: Yes Admission H&P Reviewed: Yes Notified Requestor: Yes
--- NOTE | 2020-06-15 08:40 | PCM.DCSUM1 ---
Discharge Summary - Hospital Course Brief History: Ilir is a 74 yo male who underwent left TKA with Dr. Ambrosio on 06-14-2020. The procedure was completed under spinal anesthesia with sedation and a post-operative adductor canal block was provided. The pt tolerated the procedure well, however, was slow to progress with PT. Decision was made to admit pt to Hospital under Observation status for continued monitoring of DM, renal function, and O2 as well as IV antibiotic and for PT and OT. Medical management was provided by the Hospitalist service. The pt's Hospital course was uneventful. The pt's Hgb on POD#1 was 10.6. On POD#1, 325mg ASA BID was initiated for VTE prophylaxis. SCDs and TEDs were also ordered. A Mepilex dressing was placed at the incision site at the time of surgery and remained clean and dry. On POD#1, the pt met inpt PT and OT goals and was deemed appropriate to discharge to home with his . - Discharge Data Discharge Date: 06/15/20 Discharge Disposition: Home, Self-Care 01 Condition: Good - Referral to Home Health Primary Care Physician: Gregorio Goff MD - Patient Summary/Data Consults: Consultations 06/14/20 16:56 PT Evaluation and Treatment [CONS] Routine 06/14/20 16:57 OT Evaluation and Treatment [CONS] Routine 06/15/20 08:28 Consult to Physician [CONS] Routine - Patient Instructions Diet: Usual Diet as Tolerated, Diabetic Diet Activity: Apply Ice, As Tolerated, Elevate Extremity, Full Weight Bearing Driving: Do Not Drive Showering/Bathing: May Shower Wound/Incision Care: Keep Operative Site/Wound Site Clean and Dry, Do NOT Change Dressing Notify Provider of: Fever, Increased Pain, Swelling and Redness, Drainage, Nausea and/or Vomiting Other/Special Instructions: Please get up and moving around EVERY HOUR while awake. This helps to prevent blood clots. Please use your walker and have help with mobility as needed. Take a short walk in your home EVERY HOUR while awake. On 06-15-2020, please take 325mg aspirin TWICE daily. The aspirin is being used for blood clot prevention and not for pain management so please do not miss a dose of the medication. Please HOLD use of 81 mg aspirin daily while using the 325 mg aspirin twice daily. When the course of 325 mg aspirin is completed, please resume use of 81 mg aspirin daily. If your primary care provider allows, you could use a medication like Pepcid or Tagamet and a medication like Prilosec or Nexium to protect your stomach while you are using the aspirin. TALK TO YOUR PRIMARY CARE PROVIDER about this. At home, please complete the exercises that you learned during the Hospital stay. Schedule for physical therapy. Use the pain medication as needed. The medication may cause drowsiness and constipation. Contact your primary care provider for instructions if you are constipated. You may use a stool softener like docusate sodium or Colace 100mg twice daily and/or a laxative like Miralax daily for constipation. Increase your water and fiber intake while you are using the pain medication. Discontinue use of the pain medication as soon as able. Please do not use other medications that may cause drowsiness (other pain medications, anxiety pills, cold medications, sleeping pills, etc) while using the prescription pain medication. Do not use alcohol while using the pain medication. You may use acetaminophen or Tylenol for pain management, however, please ensure you are not using over 4000 mg or 4 grams of acetaminophen per day from all sources. At this time, please do not use ibuprofen (Motrin, Advil) or naproxen (Aleve) for pain management as you are using the aspirin. When the aspirin course is completed in 4 to 6 weeks, you could use ibuprofen or naproxen for pain management (IF THIS IS ALLOWED by your primary care provider). Tomorrow, you may remove the MARKOS bandage on the surgical limb and place the MONI hose. If you can tolerate wearing the MONI hose, wear the MONI hose during the da y and you may remove these at night. Elevate the limb to decrease swelling. Elevating the limb above the level of your heart will be most effective. Place ice to the knee often. Place a towel between your skin and the blue pad. Use the incentive spirometer often. Take deep breaths throughout the day. Please keep the dressing in place until follow-up. Notify the Clinic if the dressing becomes saturated. If the dressing is sealed and without a hole, the dressing is water resistant and you could have a shower. Please closely monitor your blood sugars and notify your primary care provider with abnormal values. Elevated blood sugars increases the risk of infection. SCHEDULE a follow-up appointment with your primary doctor this week to ensure you are doing well regarding your kidney tests and blood sugars following surgery. Call the Clinic with questions or concerns - [phone] and leave a message for the nurse. - Discharge Plan *PRESCRIPTION DRUG MONITORING PROGRAM REVIEWED*: No *COPY OF PRESCRIPTION DRUG MONITORING REPORT IN PATIENT TESS: No Prescriptions/Med Rec: Aspirin [Aspirin EC] 325 mg PO BID #84 tab Cyclobenzaprine [Flexeril] 10 mg PO BID PRN #20 tab PRN Reason: Spasms oxyCODONE 5 - 10 mg PO Q4H PRN #40 tab PRN Reason: Pain Home Medications: Home Meds Cholecalciferol (Vitamin D3) [Vitamin D3] 5,000 unit PO DAILY 06/11/20 [History] Insulin Glarg,Human.Rec.Analog [Lantus] 12 units SQ BID 06/11/20 [History] Insulin Glulisine [Apidra Solostar] 10 units SQ BID 06/11/20 [History] Liraglutide [Victoza] 1.8 mg SQ DAILY 06/11/20 [History] Methotrexate 12.5 mg PO CROWLEY 06/11/20 [History] Nitroglycerin [Nitrostat] 0.4 mg SL ASDIRECTED PRN 06/11/20 [History] Tamsulosin [Flomax] 0.4 mg PO DAILY 06/11/20 [History] amLODIPine [Norvasc] 5 mg PO DAILY 06/11/20 [History] atorvaSTATin Calcium [Lipitor] 20 mg PO DAILY 06/11/20 [History] predniSONE [Prednisone] 4 mg PO DAILY 06/11/20 [History] Aspirin [Aspirin EC] 325 mg PO BID #84 tab 06/14/20 [Rx] Cyclobenzaprine [Flexeril] 10 mg PO BID PRN #20 tab 06/14/20 [Rx] oxyCODONE 5 - 10 mg PO Q4H PRN #40 tab 06/14/20 [Rx] Patient Handouts: Cyclobenzaprine tablets, Oxycodone tablets or capsules, Total Knee Replacement, Care After, Aspirin, ASA oral tablets, Total Knee Replacement Referrals: Lakisha Mcknight PA-C [Physician Assistant Inventory Manager] - 06/22/20 9:30 am (Follow up appointment scheduled for Monday, june 22, 2020 at 9:30 am with Lakisha Mcknight PA-C at [facility].) - Discharge Summary/Plan Comment DC Time >30 min.: No - Patient Data Vitals - Most Recent: Last Vital Signs Temp 96.4 F L 06/15/20 07:25 Pulse 88 06/15/20 07:25 Resp 18 06/15/20 07:25 BP 166/61 H 06/15/20 08:26 Pulse Ox 93 L 06/15/20 07:41 Weight - Most Recent: 230 lb I&O - Last 24 hours: Intake & Output 06/14/20 06/15/20 06/15/20 22:59 06:59 14:59 Intake Total 50 Balance 50 Lab Results - Last 24 hrs: Laboratory Results - last 24 hr 06/15/20 06/15/20 Range/Units 04:31 04:31 WBC 14.95 H (4.23-9.07) K/mm3 RBC 3.35 L (4.63-6.08) M/mm3 Hgb 10.6 L D (13.7-17.5) gm/dl Hct 32.8 L (40.1-51.0) % MCV 97.9 H (79.0-92.2) fl MCH 31.6 (25.7-32.2) pg MCHC 32.3 (32.2-35.5) g/dl RDW Std Deviation 47.5 H (35.1-43.9) fL Plt Count 158 L (163-337) K/mm3 MPV 11.8 (9.4-12.3) fl Sodium 132 L (136-145) mEq/L Potassium 4.4 (3.5-5.1) mEq/L Chloride 100 (98-107) mEq/L Carbon Dioxide 26 (21-32) mEq/L Anion Gap 10.4 (5-15) BUN 42 H (7-18) mg/dL Creatinine 1.9 H (0.7-1.3) mg/dL Est Cr Clr Drug Dosing 32.37 mL/min Estimated GFR (MDRD) 35 (>60) mL/min BUN/Creatinine Ratio 22.1 H (14-18) Glucose 229 H (83-115) mg/dL Calcium 8.2 L (8.5-10.1) mg/dL Total Bilirubin 0.4 (0.2-1.0) mg/dL AST 17 (15-37) U/L ALT 20 (16-63) U/L Alkaline Phosphatase 57 (46-116) U/L Total Protein 5.8 L (6.4-8.2) g/dl Albumin 2.8 L (3.4-5.0) g/dl Globulin 3.0 gm/dL Albumin/Globulin Ratio 0.9 L (1-2) Med Orders - Current: Current Medications Amlodipine Besylate (Norvasc) 5 mg PO DAILY [facility] Last Admin: 06/15/20 08:26 Dose: 5 mg Documented by: Aspirin (Ecotrin) 325 mg PO BID [facility] Bisacodyl (Dulcolax) 5 mg PO DAILY PRN PRN Reason: Constipation Cholecalciferol (Vitamin D3) 5,000 unit PO DAILY [facility] Last Admin: 06/15/20 08:26 Dose: 5,000 unit Documented by: Cyclobenzaprine HCl (Flexeril) 10 mg PO BID PRN PRN Reason: Spasms Hydromorphone HCl (Dilaudid) 0.2 mg IVPUSH Q2H PRN PRN Reason: Pain (moderate 4-6) Cefazolin Sodium/Dextrose 2 gm (/ Premix) 50 mls @ 100 mls/hr IV Q8H [facility] Stop: 06/15/20 09:29 Last Admin: 06/15/20 00:49 Dose: 100 mls/hr Documented by: Methotrexate (Methotrexate) 12.5 mg PO CROWLEY [facility] Naloxone HCl (Narcan) 0.1 mg IVPUSH Q5M PRN PRN Reason: Oversedation Nitroglycerin (Nitrostat) 0.4 mg SL ASDIRECTED PRN PRN Reason: Chest Pain Ondansetron HCl (Zofran) 4 mg IVPUSH Q6H PRN PRN Reason: Nausea/Vomiting Oxycodone HCl (Oxycodone) 5 - 10 mg PO Q4H PRN PRN Reason: Pain Last Admin: 06/14/20 18:06 Dose: 10 mg Documented by: Jenaro Alvarez *Pt (Own Med*) 0 each SUBCUT BID [facility] Last Admin: 06/15/20 08:27 Dose: 12 each Documented by: Scottie Alvarez *Pt (Own Med*) 0 each SUBCUT BIDMEALS [facility] Last Admin: 06/15/20 07:30 Dose: 10 each Documented by: Liraglutide*Pt Own (Med*) 0 each SUBCUT DAILY [facility] Last Admin: 06/15/20 08:27 Dose: 1.8 each Documented by: Prednisone (Prednisone) 4 mg PO DAILY [facility] Last Admin: 06/15/20 08:26 Dose: 4 mg Documented by: Senna (Senna) 8.6 mg PO BID PRN PRN Reason: Constipation Simvastatin (Zocor) 20 mg PO BEDTIME [facility] Last Admin: 06/14/20 20:41 Dose: 20 mg Documented by: Tamsulosin HCl (Flomax) 0.4 mg PO DAILY [facility] Last Admin: 06/15/20 08:26 Dose: 0.4 mg Documented by: Discontinued Medications Acetaminophen (Tylenol) 975 mg PO ONETIME [facility] Stop: 06/14/20 13:00 Last Admin: 06/14/20 06:22 Dose: 975 mg Documented by: Bupivacaine HCl (Sensorcaine-Mpf 0.25%) Confirm Administered Dose 30 ml .ROUTE .STK-MED ONE Stop: 06/14/20 06:25 Last Admin: 06/14/20 08:10 Dose: 30 ml Documented by: Cefazolin Sodium (Ancef) Confirm Administered Dose 2 gm .ROUTE .STK-MED ONE Stop: 06/14/20 07:00 Morphine Sulfate 8 mg/Epinephrine HCl 0.3 mg/Cefuroxime Sodium 750 mg/Ketorolac Tromethamine 30 mg/Sodium Chloride 7.9 ml 0 mg .XX ASDIRECTED PRN PRN Reason: Pain Stop: 06/14/20 15:00 Last Admin: 06/14/20 08:12 Dose: 788.3 mg Documented by: Dexamethasone (Dexamethasone) Confirm Administered Dose 20 mg .ROUTE .STK-MED ONE Stop: 06/14/20 10:42 Epinephrine HCl (Adrenalin) Confirm Administered Dose 1 mg .ROUTE .STK-MED ONE Stop: 06/14/20 08:59 Fentanyl (Sublimaze) Confirm Administered Dose 100 mcg .ROUTE .STK-MED ONE Stop: 06/14/20 06:59 Lactated Ringer's (Ringers, Lactated) 1,000 mls @ 125 mls/hr IV ASDIRECTED ELADIA Stop: 06/14/20 23:00 Last Admin: 06/14/20 06:40 Dose: 125 mls/hr Documented by: Lidocaine HCl (Xylocaine-Mpf 1%) Confirm Administered Dose 4 mls @ as directed .ROUTE .STK-MED ONE Stop: 06/14/20 06:59 Lactated Ringer's (Ringers, Lactated) Confirm Administered Dose 1,000 mls @ as directed .ROUTE .STK-MED ONE Stop: 06/14/20 10:42 Lidocaine/Sodium Bicarbonate (Buffered Lidocaine 1% In Ns 8.4%) 0.25 ml IDERM ONETIME PRN PRN Reason: Prior to IV Start Stop: 06/14/20 18:00 Last Admin: 06/14/20 06:40 Dose: 0.25 ml Documented by: Oxycodone HCl (Oxycontin) 10 mg PO ONETIME [facility] Stop: 06/14/20 13:00 Last Admin: 06/14/20 06:22 Dose: 10 mg Documented by: Oxycodone HCl (Oxycodone) 10 mg PO Q4H PRN PRN Reason: Pain Last Admin: 06/14/20 10:24 Dose: 10 mg Documented by: Pregabalin (Lyrica) 50 mg PO ONETIME [facility] Stop: 06/14/20 13:00 Last Admin: 06/14/20 06:21 Dose: 50 mg Documented by: Propofol (Diprivan 20 Ml) Confirm Administered Dose 200 mg .ROUTE .STK-MED ONE Stop: 06/14/20 06:59 Propofol (Diprivan 20 Ml) Confirm Administered Dose 200 mg .ROUTE .STK-MED ONE Stop: 06/14/20 07:43 Propofol (Diprivan 20 Ml) Confirm Administered Dose 200 mg .ROUTE .STK-MED ONE Stop: 06/14/20 08:21 Ropivacaine (Naropin 0.5%) Confirm Administered Dose 30 ml .ROUTE .STK-MED ONE Stop: 06/14/20 09:00 Sodium Chloride (Saline Flush) 10 ml FLUSH ASDIRECTED PRN PRN Reason: Keep Vein Open Stop: 06/14/20 18:00 Tranexamic Acid (Cyklokapron) Confirm Administered Dose 1,000 mg .ROUTE .STK-MED ONE Stop: 06/14/20 06:25 Last Admin: 06/14/20 08:23 Dose: 1,000 mg Documented by: Vancomycin HCl (Vancomycin) Confirm Administered Dose 1 gm .ROUTE .[facility] ONE Stop: 06/14/20 06:25 Last Admin: 06/14/20 08:23 Dose: 1 gm Documented by:
[2020-06-15] MEDS ORDERED: amLODIPine 5 MG Tab PO SCH (09:00)
[2020-06-15] MEDS ORDERED: predniSONE 1 MG Tab PO SCH (09:00)
[2020-06-15] MEDS ORDERED: LIRAGLUTIDE SUBCUT SCH (09:00)
[2020-06-15] MEDS ORDERED: Cholecalciferol (Vitamin D3) 5,000 UNIT Cap PO SCH (09:00)
[2020-06-15] MEDS ORDERED: Tamsulosin 0.4 MG Cap.ER PO SCH (09:00)
[2020-06-16] MEDS ORDERED: Aspirin 325 MG Tab.EC PO SCH (08:14)
[2020-06-20] MEDS ORDERED: Methotrexate 2.5 MG Tab PO SCH (17:10)
--- NOTE | 2020-06-24 10:40 | PCM.OPNOTE ---
- General Post-Op/Procedure Note Date of Surgery/Procedure: 06/14/20 Operative Procedure(s): left total knee arthroplasty Pre Op Diagnosis: left knee osteoarthrosis Post-Op Diagnosis: Same Anesthesia Technique: Local, MAC, Spinal Primary Surgeon: Blaise Ambrosio Anesthesia Provider: Salvador Sepulveda Photographers' Model: Lakisha Mcknight Photographers' Model: Kacie Reynoso in mLs: 5 Complications: None Condition: Good Free Text/Narrative:: 5 femur 6 tibia 11mm PS 35x10
--- NOTE | 2020-06-24 11:08 | OR ---
DATE OF OPERATION: 06/14/2020 SURGEON: Blaise Ambrosio MD OPERATION PERFORMED: Left total knee arthroplasty. PREOPERATIVE DIAGNOSIS: Left knee osteoarthrosis. POSTOPERATIVE DIAGNOSIS: Left knee osteoarthrosis. ANESTHESIA: Local MAC with spinal. ANESTHESIA PROVIDER: Salvador Sepulveda CRNA ASSISTANTS: Lakisha Mcknight PA-C and Kacie Reynoso LPN. ESTIMATED BLOOD LOSS: 5 mL. COMPLICATIONS: None. CONDITION: Stable. IMPLANTS: 1. [place] size 5 cemented PS femur. 2. Sparkle size 6 cemented [place] tibial baseplate. 3. Sparkle size 6, 11 mm PS X3 polyethylene. 4. Sparkle size 35 x 10 mm cemented asymmetric patella. DESCRIPTION OF PROCEDURE: The patient was identified in the preop holding area. Proper site was marked and identified by the surgeon. The patient was taken back to the operating theater. After adequate anesthesia, the patient's left lower extremity had a nonsterile tourniquet applied and it was sterilely prepped and draped in the usual sterile fashion. OR time-out was performed. The patient received 2 g IV Ancef. At this time, the left lower extremity was exsanguinated. Tourniquet was insufflated to 300 mmHg. Standard medial parapatellar incision was made. Medial parapatellar arthrotomy was created. Deep fibers of the MCL were raised and anterior fat pad was resected. At this time, attention was turned to the patella. Patella measured 24, it was resected to a 14 for 35 x 10 mm patella. Drill holes were then drilled and found to be in adequate position. The drill was then drilled in the distal femur and the intramedullary distal femoral cutting guide was then placed. 10 mm was resected off the distal femur and was found to be an adequate resection. Sizing guide was placed. It was found to be a size 5 cemented PS femur that was shown on the implant record at the beginning of this dictation. The drill holes were drilled for the epicondylar axis using [place] line and epicondyles as reference. At this time, the 4-in-1 cutting block was placed. An anterior posterior and anterior and posterior chamfer cuts were then completed. Box cut was completed at this time. Attention was turned to the tibia. The posterior medial lateral retractors were placed. The extramedullary tibial guide was placed. It was placed in the old footprint of the ACL. It was aligned with the center of the ankle and 0 degrees of slope, 9 mm was then resected off the unaffected side. There was found to be an acceptable reduction. At this time, posterior osteophytes were removed along with medial and lateral meniscus. A trial implant was placed with a correct sized tibia that was mentioned at the beginning of the dictation. A Sparkle size 6, 11 mm PS X3 polyethylene insert was then placed. The patient's knee was brought through range of motion. The patella was tracking centrally and was stable to varus and valgus stress. Alignment was found to be roughly at 0 degrees. The tibia was stamped and drilled in proper rotation. All cut surfaces were irrigated and dried. Cement was mixed. The universal tibial base plate was impacted in place. Next, the Sparkle size 5 cemented PS femur impacted into place and the Sparkle size 6, 11 mm PS X3 polyethylene insert was placed. The patient's knee was brought into full extension. The patella was then cemented in place at this time. One liter Irrisept solution was irrigated through the knee along with 1 L of pulse lavage irrigation with Ancef. Periarticular injection was then completed. The patient's knee was brought through a range of motion. Once the cement had time to set up and it was found to be stable to varus valgus stress, the patella was tracking centrally with full range of motion. At this time, a #2 barbed suture was used for closure of the medial parapatellar arthrotomy. Topical tranexamic acid was placed. 2-0 Vicryl was used subcutaneously, Prineo was used for the skin. The patient tolerated the procedure well and was sent to the PACU in stable condition. MMCOLIN /[id number] VALERIE
== END 2020-06-15 10:45 | disposition home or self-care (01) ==
LOC: JD.SDS 06:04 → JD.OB 16:52 → JD.SDS 17:10 → JD.OB 17:11
PROVIDERS: ADMIT Orthopaedic Surgery; ATTEND Orthopaedic Surgery
DX: M17.12 Unilateral primary osteoarthritis, left knee (principal); I10 Essential (primary) hypertension; M35.3 Polymyalgia rheumatica; G89.29 Other chronic pain; E66.9 Obesity, unspecified; E78.5 Hyperlipidemia, unspecified; E11.65 Type 2 diabetes mellitus with hyperglycemia; E11.319 Type 2 diabetes mellitus with unspecified diabetic retinopathy without macular edema; G89.18 Other acute postprocedural pain; E78.00 Pure hypercholesterolemia, unspecified; I83.90 Asymptomatic varicose veins of unspecified lower extremity; N40.1 Benign prostatic hyperplasia with lower urinary tract symptoms; R35.1 Nocturia; D64.9 Anemia, unspecified; E87.1 Hypo-osmolality and hyponatremia; Z79.899 Other long term (current) drug therapy; Z79.82 Long term (current) use of aspirin; Z79.4 Long term (current) use of insulin; Z87.891 Personal history of nicotine dependence; Z68.34 Body mass index [BMI] 34.0-34.9, adult
CPT/HCPCS: 27447; 36415; 73560; 80053; 85027; 87641; 94761; 96365; 96366; 96376; 97110; 97116; 97161; 97165; 97530; A9270; C1713; C1776; G0378; J0171; J0690; J0697; J1100; J1885; J2001; J2270; J2704; J2795; J3010; J3370; J3490; J7120; J7512; 01402; 64450; 99203

== ENCOUNTER 2021-03-05 13:50 | Emergency (ER) | payer MEDICARE, BC ==
[2021-03-05] MEDS ORDERED: Sodium Chloride 0.9% 1,000 ML IV SCH (14:30)
[2021-03-05] MEDS ORDERED: Sodium Chloride 0.9% 10 ML Syringe FLUSH PRN (14:30)
[2021-03-05] MEDS ORDERED: Ondansetron 4 MG/2 ML SDV IVPUSH ONE (14:30)
[2021-03-05] MEDS ORDERED: Dexamethasone 4 MG/ML SDV IVPUSH ONE (14:32)
[2021-03-05] MEDS ORDERED: diphenhydrAMINE 50 MG/ML SDV IVPUSH PRN (14:33)
[2021-03-05] MEDS ORDERED: EPINEPHrine 1 MG/ML SDV IM PRN (14:33)
[2021-03-05] MEDS ORDERED: Famotidine 20 MG/2 ML SDV IVPUSH PRN (14:33)
[2021-03-05] MEDS ORDERED: methylPREDNISolone Sodium Succinate 125 MG/2 ML SDV IVPUSH PRN (14:33)
[2021-03-05] MEDS ORDERED: Sodium Chloride 0.9% 10 ML Syringe FLUSH SCH (14:45)
--- NOTE | 2021-03-05 15:51 | EDM.PDOC ---
ED HPI GENERAL MEDICAL PROBLEM - General Chief Complaint: Respiratory Problem Stated Complaint: COVID +/WORSENING SYMPTOMS Time Seen by Provider: 03/05/21 14:18 Source of Information: Reports: Patient History Limitations: Reports: No Limitations - History of Present Illness INITIAL COMMENTS - FREE TEXT/NARRATIVE: The patient presents with a cough, fever, chills, shortness of breath, and nausea. This has been going on for about 3 days. He tested positive for COVID 19 on . He got one dose of the COVID 19 vaccine 10 days ago. He has a history of hypertension, hypercholesterolemia, diabetes and anemia. He has generalized weakness and malaise. Onset: Gradual Duration: Day(s): Severity: Moderate Improves with: Reports: None Worsens with: Reports: None Associated Symptoms: Reports: Cough, Fever/Chills, Nausea/Vomiting, Shortness of Breath. Denies: Headaches - Related Data Allergies Allergy/AdvReac Type Severity Reaction Status Date / Time No Known Allergies Allergy Verified 03/05/21 14:18 Home Meds: Home Meds Cholecalciferol (Vitamin D3) [Vitamin D3] 5,000 unit PO DAILY 06/11/20 [History] Insulin Glarg,Human.Rec.Analog [Lantus] 12 units SQ BID 06/11/20 [History] Insulin Glulisine [Apidra Solostar] 10 units SQ BID 06/11/20 [History] Liraglutide [Victoza] 1.8 mg SQ DAILY 06/11/20 [History] Methotrexate 12.5 mg PO CROWLEY 06/11/20 [History] Tamsulosin [Flomax] 0.4 mg PO DAILY 06/11/20 [History] amLODIPine [Norvasc] 5 mg PO DAILY 06/11/20 [History] atorvaSTATin Calcium [Lipitor] 20 mg PO DAILY 06/11/20 [History] predniSONE [Prednisone] 4 mg PO DAILY 06/11/20 [History] oxyCODONE 5 - 10 mg PO Q4H PRN #40 tab 06/14/20 [Rx] Aspirin [Aspirin EC] 81 mg PO DAILY 03/05/21 [History] dexAMETHasone [Dexamethasone] 6 mg PO DAILY #12 tab 03/05/21 [Rx] Past Medical History HEENT History: Reports: Impaired Vision, Other (See Below) Other HEENT History: diabetic retinopathy, wears glasses, has dentures Cardiovascular History: Reports: High Cholesterol, Hypertension, Other (See Below) Other Cardiovascular History: varicose veins, edema Respiratory History: Reports: Other (See Below) Other Respiratory History: acute bronchitis, upper respiratory infection, shortness of breath with exertion Gastrointestinal History: Reports: None Genitourinary History: Reports: BPH, Other (See Below) Other Genitourinary History: nocturia HOSPICE MUSIC THERAPIST History: Reports: None Musculoskeletal History: Reports: Other (See Below) Other Musculoskeletal History: left knee pain, polymyalgia rheumatica, joint pain, popliteal space synovial cyst, left thumb tip amputation Neurological History: Reports: None Psychiatric History: Reports: Other (See Below) Other Psychiatric History: malaise, fatigue Endocrine/Metabolic History: Reports: Diabetes, Type II, Obesity/BMI 30+, Other (See Below) Other Endocrine/Metabolic History: thyroxotosis Hematologic History: Reports: Anemia Immunologic History: Reports: None Oncologic (Cancer) History: Reports: None Dermatologic History: Reports: Other (See Below) Other Dermatologic History: cellulits, abcess - Infectious Disease History Infectious Disease History: Reports: Novel Coronavirus - Past Surgical History Head Surgeries/Procedures: Reports: None HEENT Surgical History: Reports: Cataract Surgery Respiratory Surgical History: Reports: None GI Surgical History: Reports: Colonoscopy Male Surgical History: Reports: None Endocrine Surgical History: Reports: None Neurological Surgical History: Reports: None Musculoskeletal Surgical History: Reports: None Oncologic Surgical History: Reports: None Dermatological Surgical History: Reports: None Social & Family History - Tobacco Use Tobacco Use Status *Q: Never Tobacco User Second Hand Smoke Exposure: No - Caffeine Use Caffeine Use: Reports: Coffee, Soda - Recreational Drug Use Recreational Drug Use: No ED ROS GENERAL - Review of Systems Review Of Systems: See Below Constitutional: Reports: Fever, Chills, Malaise, Weakness, Fatigue HEENT: Reports: No Symptoms Respiratory: Reports: Shortness of Breath, Cough Cardiovascular: Reports: No Symptoms Endocrine: Reports: No Symptoms GI/Abdominal: Reports: Nausea. Denies: Abdominal Pain, Diarrhea, Vomiting : Reports: No Symptoms Musculoskeletal: Reports: No Symptoms ED EXAM, GENERAL - Physical Exam Exam: See Below Exam Limited By: No Limitations General Appearance: Alert, No Apparent Distress Ears: Normal External Exam Nose: Normal Inspection Head: Atraumatic, Normocephalic Neck: Normal Inspection Respiratory/Chest: No Respiratory Distress, Decreased Breath Sounds Cardiovascular: Regular Rate, Rhythm, No Edema, No Murmur GI/Abdominal: Soft, Non-Tender, No Organomegaly, No Mass Back Exam: Normal Inspection Extremities: Normal Inspection #1 Interpretation EKG Date: 03/05/21 Time: 14:29 Rhythm: NSR Rate (Beats/Min): 76 [place]: LAD-Left Val[place] Deviation P-Wave: Present QRS: Normal ST-T: Normal QT: Normal Course - Vital Signs Last Recorded V/S: Last Vital Signs Temp 98.4 F 03/05/21 14:15 Pulse 80 03/05/21 14:15 Resp 20 03/05/21 14:15 BP 158/52 H 03/05/21 14:15 Pulse Ox 93 L 03/05/21 14:15 - Orders/Labs/Meds Orders: Active Orders 24 hr Category Date Time Status Cardiac Monitoring [RC] . DIRECTED Care 03/05/21 14:30 Active EKG Documentation Completion [RC] STAT Care 03/05/21 14:32 Active Oxygen Therapy [RC] PRN Care 03/05/21 14:31 Active Peripheral IV Care [RC] . DIRECTED Care 03/05/21 14:31 Active Vital Signs [RC] Q15M Care 03/05/21 14:33 Active Chest 1V Frontal [CR] Stat Exams 03/05/21 14:32 Taken EPINEPHrine [Adrenalin] Med 03/05/21 14:33 Active 0.3 mg IM ONETIME PRN Famotidine [Pepcid] Med 03/05/21 14:33 Active 20 mg IVPUSH ONETIME PRN Sodium Chloride 0.9% [Normal Saline] 1,000 ml Med 03/05/21 14:30 Active IV .BOLUS Sodium Chloride 0.9% [Saline Flush] Med 03/05/21 14:30 Active 10 ml FLUSH ASDIRECTED PRN Sodium Chloride 0.9% [Saline Flush] Med 03/05/21 14:45 Active 30 ml FLUSH ASDIRECTED diphenhydrAMINE [Benadryl] Med 03/05/21 14:33 Active 50 mg IVPUSH ONETIME PRN methylPREDNISolone Sod Succ [Solu-MEDROL] Med 03/05/21 14:33 Active 125 mg IVPUSH ONETIME PRN ED Antiemetic Medication Reflex [OM.PC] Stat Oth 03/05/21 14:31 Ordered Peripheral IV Insertion Adult [OM.PC] Stat Oth 03/05/21 14:30 Ordered Medication Orders Diphenhydramine HCl (Diphenhydramine 50 Mg/Ml Sdv) 50 mg IVPUSH ONETIME PRN PRN Reason: hypersensitivity reaction Epinephrine HCl (Epinephrine 1 Mg/Ml Sdv) 0.3 mg IM ONETIME PRN PRN Reason: hypersensitivity reaction Famotidine (Famotidine 20 Mg/2 Ml Sdv) 20 mg IVPUSH ONETIME PRN PRN Reason: hypersensitivity reaction Sodium Chloride (Normal Saline) 1,000 mls @ 1,000 mls/hr IV .BOLUS ELADIA Last Admin: 03/05/21 15:04 Dose: 1,000 mls/hr Documented by: SUNITA Methylprednisolone Sodium Succinate (Methylprednisolone Sodium Succinate 125 Mg/2 Ml Sdv) 125 mg IVPUSH ONETIME PRN PRN Reason: hypersensitivity reaction Sodium Chloride (Sodium Chloride 0.9% 10 Ml Syringe) 30 ml FLUSH ASDIRECTED ELADIA Sodium Chloride (Sodium Chloride 0.9% 10 Ml Syringe) 10 ml FLUSH ASDIRECTED PRN PRN Reason: Keep Vein Open Labs: Laboratory Tests 03/05/21 03/05/21 03/05/21 Range/Units 14:42 14:42 14:42 WBC 3.35 L (4.23-9.07) K/mm3 RBC 3.80 L (4.63-6.08) M/mm3 Hgb 12.1 L D (13.7-17.5) gm/dl Hct 37.3 L (40.1-51.0) % MCV 98.2 H (79.0-92.2) fl MCH 31.8 (25.7-32.2) pg MCHC 32.4 (32.2-35.5) g/dl RDW Std Deviation 48.2 H (35.1-43.9) fL Plt Count 138 L (163-337) K/mm3 MPV 10.9 (9.4-12.3) fl Neut % (Auto) 60.0 (34.0-67.9) % Lymph % (Auto) 22.7 (21.8-53.1) % [place] % (Auto) 16.7 H (5.3-12.2) % Eos % (Auto) 0 L (0.8-7.0) Baso % (Auto) 0.6 (0.1-1.2) % Neut # (Auto) 2.01 (1.78-5.38) K/mm3 Lymph # (Auto) 0.76 L (1.32-3.57) K/mm3 [place] # (Auto) 0.56 (0.30-0.82) K/mm3 Eos # (Auto) 0.00 L (0.04-0.54) K/mm3 Baso # (Auto) 0.02 (0.01-0.08) K/mm3 D-Dimer, Quantitative 0.72 H (0.19-0.50) mg/L Sodium 140 (136-145) mEq/L Potassium 3.8 (3.5-5.1) mEq/L Chloride 104 (98-107) mEq/L Carbon Dioxide 30 (21-32) mEq/L Anion Gap 9.8 (5-15) BUN 22 H (7-18) mg/dL Creatinine 1.7 H (0.7-1.3) mg/dL Est Cr Clr Drug Dosing 35.64 mL/min Estimated GFR (MDRD) 40 (>60) mL/min BUN/Creatinine Ratio 12.9 L (14-18) Glucose 103 H (70-99) mg/dL Lactic Acid (0.4-2.0) mmol/L Calcium 7.9 L (8.5-10.1) mg/dL Total Bilirubin 0.5 (0.2-1.0) mg/dL AST 22 (15-37) U/L ALT 24 (16-63) U/L Alkaline Phosphatase 64 (46-116) U/L C-Reactive Protein 6.2 H* (<1.0) mg/dL Total Protein 6.5 (6.4-8.2) g/dl Albumin 3.3 L (3.4-5.0) g/dl Globulin 3.2 gm/dL Albumin/Globulin Ratio 1.0 (1-2) 03/05/ Range/Units 14:59 WBC (4.23-9.07) K/mm3 RBC (4.63-6.08) M/mm3 Hgb (13.7-17.5) gm/dl Hct (40.1-51.0) % MCV (79.0-92.2) fl MCH (25.7-32.2) pg MCHC (32.2-35.5) g/dl RDW Std Deviation (35.1-43.9) fL Plt Count (163-337) K/mm3 MPV (9.4-12.3) fl Neut % (Auto) (34.0-67.9) % Lymph % (Auto) (21.8-53.1) % [place] % (Auto) (5.3-12.2) % Eos % (Auto) (0.8-7.0) Baso % (Auto) (0.1-1.2) % Neut # (Auto) (1.78-5.38) K/mm3 Lymph # (Auto) (1.32-3.57) K/mm3 [place] # (Auto) (0.30-0.82) K/mm3 Eos # (Auto) (0.04-0.54) K/mm3 Baso # (Auto) (0.01-0.08) K/mm3 D-Dimer, Quantitative (0.19-0.50) mg/L Sodium (136-145) mEq/L Potassium (3.5-5.1) mEq/L Chloride (98-107) mEq/L Carbon Dioxide (21-32) mEq/L Anion Gap (5-15) BUN (7-18) mg/dL Creatinine (0.7-1.3) mg/dL Est Cr Clr Drug Dosing mL/min Estimated GFR (MDRD) (>60) mL/min BUN/Creatinine Ratio (14-18) Glucose (70-99) mg/dL Lactic Acid 0.8 (0.4-2.0) mmol/L Calcium (8.5-10.1) mg/dL Total Bilirubin (0.2-1.0) mg/dL AST (15-37) U/L ALT (16-63) U/L Alkaline Phosphatase (46-116) U/L C-Reactive Protein (<1.0) mg/dL Total Protein (6.4-8.2) g/dl Albumin (3.4-5.0) g/dl Globulin gm/dL Albumin/Globulin Ratio (1-2) Meds: Medications Generic Name Dose Route Start Last Admin Trade Name Freq PRN Reason Stop Dose Admin Diphenhydramine HCl 50 mg 03/05/21 14:33 Diphenhydramine 50 Mg/Ml Sdv IVPUSH ONETIME PRN hypersensitivity reaction Epinephrine HCl 0.3 mg 03/05/21 14:33 Epinephrine 1 Mg/Ml Sdv IM ONETIME PRN hypersensitivity reaction Famotidine 20 mg 03/05/21 14:33 Famotidine 20 Mg/2 Ml Sdv IVPUSH ONETIME PRN hypersensitivity reaction Sodium Chloride 1,000 mls @ 1,000 mls/hr 03/05/21 14:30 03/05/21 15:04 Normal Saline IV 1,000 mls/hr .BOLUS ELADIA Administration Methylprednisolone Sodium Succinate 125 mg 03/05/21 14:33 Methylprednisolone Sodium Succinate 125 Mg/2 Ml Sdv IVPUSH ONETIME PRN hypersensitivity reaction Sodium Chloride 30 ml 03/05/21 14:45 Sodium Chloride 0.9% 10 Ml Syringe FLUSH ASDIRECTED ELADIA Sodium Chloride 10 ml 03/05/21 14:30 Sodium Chloride 0.9% 10 Ml Syringe FLUSH ASDIRECTED PRN Keep Vein Open Discontinued Medications Generic Name Dose Route Start Last Admin Trade Name Freq PRN Reason Stop Dose Admin Dexamethasone 6 mg 03/05/21 14:32 03/05/21 15:04 Dexamethasone 4 Mg/Ml Sdv IVPUSH 03/05/21 14:33 6 mg ONETIME ONE Administration CASIRIVIMAB/IMDEVIMAB 10 ml/ 110 mls @ 220 mls/hr 03/05/21 14:33 03/05/21 15:04 Sodium Chloride IV 03/05/21 15:02 220 mls/hr ONETIME ONE Administration Ondansetron HCl 4 mg 03/05/21 14:30 03/05/21 15:05 Ondansetron 4 Mg/2 Ml Sdv IVPUSH 03/05/21 14:31 4 mg ONETIME ONE Administration - Re-Assessments/Exams Free Text/Narrative Re-Assessment/Exam: 03/05/21 15:55 I ordered an IV NS 1L bolus, zofran 4mg IV, labs, EKG, CXR, dexamethasone and REGEN COV. I spoke with the patient to provide information about REGEN-COV treatment. I offered them the Patient and Caregiver EUA REGEN-COV Fact Sheet to read and review. I stated the drug has been approved by an emergency use authorization (EUA} process and has not fully been FDA reviewed or approved. The patient meets the EUA requirements. I discussed there are other potential treatment options that are currently not FDA approved to treat COVID 19. Offered opportunity to ask questions and all questions were answered. The patient voiced understanding and agreed to proceed with treatment. His CXR does not show any infiltrated. His WBC is low at 3.35. His Hgb is low at 12.1. His D-dimer is elevated at 0.72. This is consistent with COVID 19. His creatinine is elevated at 1.7. His CRP is 6.2. 03/05/21 16:29 His oxygen saturations have been in the low 90s. I will get him on some dex at home. The REGN-COV will help. I will discharge him home. Departure - Departure Time of Disposition: 16:40 Disposition: Home, Self-Care 01 Condition: Good Clinical Impression: COVID-19 - Discharge Information *PRESCRIPTION DRUG MONITORING PROGRAM REVIEWED*: Not Applicable *COPY OF PRESCRIPTION DRUG MONITORING REPORT IN PATIENT TESS: Not Applicable Prescriptions: dexAMETHasone [Dexamethasone] 6 mg PO DAILY #12 tab Referrals: PCP,None [Primary Care Provider] - Forms: ED Department Discharge Additional Instructions: Drink plenty of fluids. Take the dexamethasone 6mg or 1 1/2 pills daily until gone. Try to lay on your stomach at times. That will help with oxygenation. Check your oxygen saturations at different times. If you are consistently below 90% please return or return if you feel worse. Follow up with your provider next week. Sepsis Event Note (ED) - Focused Exam Vital Signs: Vital Signs Temp Pulse Resp BP Pulse Ox 03/05/21 14:15 98.4 F 80 20 158/52 H 93 L - My Orders Last 24 Hours: My Active Orders 03/05/21 14:30 Cardiac Monitoring [RC] . DIRECTED Sodium Chloride 0.9% [Normal Saline] 1,000 ml IV .BOLUS Sodium Chloride 0.9% [Saline Flush] 10 ml FLUSH ASDIRECTED PRN Peripheral IV Insertion Adult [OM.PC] Stat 03/05/21 14:31 Oxygen Therapy [RC] PRN Peripheral IV Care [RC] . DIRECTED ED Antiemetic Medication Reflex [OM.PC] Stat 03/05/21 14:32 EKG Documentation Completion [RC] STAT Chest 1V Frontal [CR] Stat 03/05/21 14:33 Vital Signs [RC] Q15M EPINEPHrine [Adrenalin] 0.3 mg IM ONETIME PRN Famotidine [Pepcid] 20 mg IVPUSH ONETIME PRN diphenhydrAMINE [Benadryl] 50 mg IVPUSH ONETIME PRN methylPREDNISolone Sod Succ [Solu-MEDROL] 125 mg IVPUSH ONETIME PRN 03/05/21 14:45 Sodium Chloride 0.9% [Saline Flush] 30 ml FLUSH ASDIRECTED - Assessment/Plan Last 24 Hours: My Active Orders 03/05/21 14:30 Cardiac Monitoring [RC] . DIRECTED Sodium Chloride 0.9% [Normal Saline] 1,000 ml IV .BOLUS Sodium Chloride 0.9% [Saline Flush] 10 ml FLUSH ASDIRECTED PRN Peripheral IV Insertion Adult [OM.PC] Stat 03/05/21 14:31 Oxygen Therapy [RC] PRN Peripheral IV Care [RC] . DIRECTED ED Antiemetic Medication Reflex [OM.PC] Stat 03/05/21 14:32 EKG Documentation Completion [RC] STAT Chest 1V Frontal [CR] Stat 03/05/21 14:33 Vital Signs [RC] Q15M EPINEPHrine [Adrenalin] 0.3 mg IM ONETIME PRN Famotidine [Pepcid] 20 mg IVPUSH ONETIME PRN diphenhydrAMINE [Benadryl] 50 mg IVPUSH ONETIME PRN methylPREDNISolone Sod Succ [Solu-MEDROL] 125 mg IVPUSH ONETIME PRN 03/05/21 14:45 Sodium Chloride 0.9% [Saline Flush] 30 ml FLUSH ASDIRECTED
--- NOTE | 2021-03-06 09:18 | CR ---
Chest: Portable view of the chest was obtained. Comparison: Prior chest CT study of 03/18/09. Heart size and mediastinum are normal. Lungs are clear with no acute parenchymal change. Bony structures show scattered degenerative spurring within the spine. Impression: 1. Incidental findings. 2. Nothing acute is seen on portable chest x-ray. Diagnostic code #2
== END 2021-03-05 17:45 | disposition home or self-care (01) ==
LOC: JD.ED 13:50
DX: U07.1 COVID-19 (principal); E78.00 Pure hypercholesterolemia, unspecified; I10 Essential (primary) hypertension; E11.319 Type 2 diabetes mellitus with unspecified diabetic retinopathy without macular edema; E66.9 Obesity, unspecified; M06.9 Rheumatoid arthritis, unspecified; Z79.4 Long term (current) use of insulin; Z79.899 Other long term (current) drug therapy; Z68.34 Body mass index [BMI] 34.0-34.9, adult
CPT/HCPCS: 36415; 71045; 80053; 83605; 85025; 85379; 86140; 96374; 96375; 99285; J1100; J2405; J7030; M0243; Q0243; 93010; 99284

== ENCOUNTER 2024-03-30 10:45 | Emergency (ER) | payer MEDICARE, BC ==
[2024-03-30] MEDS ORDERED: Sodium Chloride 0.9% 10 ML Syringe FLUSH PRN (11:32)
[2024-03-30 11:42] LABS: BASOPHILS PERCENT AUTO 0.6 % (0.0-1.0); EOSINOPHILS PERCENT AUTO 0.2 % (0.0-6.0); HEMATOCRIT 37.4 % (42.0-52.0); HEMOGLOBIN 12.6 gm/dl (14.0-18.0); IMMATURE GRAN ABSOLUTE AUTO 0.01 K/mm3 (0.00-0.05); IMMATURE GRAN PERCENT AUTO 0.2 % (0.0-0.4); LYMPHOCYTES ABSOLUTE AUTO 0.6 K/mm3 (1.0-4.8); LYMPHOCYTES PERCENT AUTO 12.2 % (24.0-44.0); MEAN CORPUSCULAR HEMOGLOBIN 33.1 pg (28.0-32.0); MEAN CORPUSCULAR HGB CONC 33.7 g/dl (32.0-36.0); MEAN CORPUSCULAR VOLUME 98.2 fl (83.0-99.0); MEAN PLATELET VOLUME 11.1 fl (9.4-12.4); MONOCYTES ABSOLUTE AUTO 0.8 K/mm3 (0.0-0.8); MONOCYTES PERCENT AUTO 17.3 % (0.0-8.0); NEUTROPHILS ABSOLUTE AUTO 3.3 K/mm3 (1.8-7.7); NEUTROPHILS PERCENT AUTO 69.5 % (41.0-71.0); PLATELET COUNT,PLT 128 K/mm3 (150-400); RED BLOOD CELL COUNT 3.81 M/mm3 (4.52-5.90); WHITE BLOOD CELL COUNT,WBC 4.68 K/mm3 (3.9-11.3)
[2024-03-30 11:57] LABS: INR 1.09; PROTHROMBIN TIME 11.5 SECONDS (9.7-12.0)
[2024-03-30 12:04] LABS: A/G RATIO 1.2 (1-2); ALBUMIN 3.4 g/dl (3.4-5.0); ANION GAP 11.1 (5-15); BILIRUBIN TOTAL 0.9 mg/dL (0.2-1.0); BUN/CREATININE RATIO 15.3 (14-18); CALCIUM 8.6 mg/dL (8.5-10.1); CREATININE 1.5 mg/dL (0.7-1.3); EST CRCL DRUG DOSING (CG) 37.22 mL/min; POTASSIUM,K 4.1 mEq/L (3.5-5.1); PROTEIN TOTAL,TP 6.3 g/dl (6.4-8.2)
[2024-03-30] MEDS: Sodium Chloride 0.9% 500 ML IV SCH (12:40)
== END 2024-03-30 14:51 | disposition home or self-care (01) ==
LOC: JD.ED 10:45
DX: U07.1 COVID-19 (principal); E78.00 Pure hypercholesterolemia, unspecified; I10 Essential (primary) hypertension; E11.9 Type 2 diabetes mellitus without complications; E66.9 Obesity, unspecified; Z68.35 Body mass index [BMI] 35.0-35.9, adult; Z79.899 Other long term (current) drug therapy; Z79.4 Long term (current) use of insulin; Z86.16 Personal history of COVID-19
CPT/HCPCS: 36415; 71045; 72110; 74019; 80053; 84484; 85025; 85610; 93005; 96360; 99285; J7030